=== PATIENT | male | born 1990 | race Caucasian/White ===

== ENCOUNTER 2019-02-06 22:08 | Emergency (ER) | payer OTHER ==
[~2019-02-06] VITALS: Ht 170.2 cm; Wt 88.5 kg
[2019-02-06] MEDS ORDERED: ABILIFY 5 MG TAB5 MG PO (22:20)
[2019-02-06] MEDS ORDERED: IBUPROFEN 800800 MG PO (23:31)
[2019-02-06] MEDS ORDERED: HYDROCODON-ACE1 EAC7 PO (23:31)
[2019-02-07 00:05] VITALS: BP 140/58
== END 2019-02-07 00:05 | disposition home or self-care (01) ==
LOC: M.ERS 22:08
DX: S52.135A Nondisplaced fracture of neck of left radius, initial encounter for closed fracture (principal); F32.9 Major depressive disorder, single episode, unspecified; W01.0XXA Fall on same level from slipping, tripping and stumbling without subsequent striking against object, initial encounter; Y93.89 Activity, other specified; Y92.89 Other specified places as the place of occurrence of the external cause; Y99.8 Other external cause status

== ENCOUNTER 2019-08-10 19:23 | Emergency (ER) | payer OTHER ==
[~2019-08-10] VITALS: Ht 170.2 cm; Wt 87.1 kg
[~2019-08-10 19:23] MED LIST: ABILIFY 5 MG TAB5 MG PO; HYDROCODON-ACE1 EAC7 PO; IBUPROFEN 800800 MG PO
[2019-08-10 19:46] LABS: ABSOLUTE BASOPHILS 0.1 thou/uL (0.0-0.2); ABSOLUTE EOSINOPHILS 0.1 thou/uL (0.0-0.7); ABSOLUTE LYMPHOCYTES 1.7 thou/uL (0.8-5.3); ABSOLUTE MONOCYTES 0.3 thou/uL (0.0-1.2); ABSOLUTE NEUTROPHILS 4.1 thou/uL (1.6-8.1); BASOPHILS 1.3 %; EOSINOPHILS 1.3 %; HEMATOCRIT 43.1 % (42.0-52.0); HEMOGLOBIN 14.8 gm/dL (14.0-18.0); LYMPHOCYTES 26.3 %; MCH 27.5 pg (26.0-34.0); MCHC 34.4 g/dL (28.0-37.0); MCV 79.8 fL (80.0-100.0); MONOCYTES 5.3 %; MPV 9.6 fl. (7.2-11.1); NUCLEATED RBCS 0 /100WBC; PLATELET COUNT* 217 thou/uL (150-400); POLYS 65.8 %; RDW-CV 15.7 % (10.5-14.5); WBC 6.3 thou/uL (4.0-11.0)
[2019-08-10 19:55] LABS: CALCIUM 9.2 mg/dL (8.5-10.1); POTASSIUM 3.7 mmol/L (3.5-5.1)
[2019-08-10 20:00] LABS: ALBUMIN 4.1 g/dL (3.4-5.0); TOTAL BILIRUBIN 0.6 mg/dL (<0.1-1.0); TOTAL PROTEIN 7.9 g/dL (6.4-8.2)
[2019-08-10 20:35] LABS: ACETAMINOPHEN < 2 ug/mL (10-30); ALCOHOL < 10 mg/dL (<10); SALICYLATE < 2.8 mg/dL (2.8-20.0)
[2019-08-10 20:59] LABS: AMP/METHAMP Negative (Negative); BARBITURATES Negative (Negative); BENZODIAZEPINES Negative (Negative); COCAINE Negative (Negative); METHADONE Negative (Negative); OPIATES Negative (Negative); PCP Negative (Negative); THC Negative (Negative)
[2019-08-10 21:07] LABS: URINE BILIRUBIN NEGATIVE (Negative); URINE BLOOD NEGATIVE (Negative); URINE CLARITY CLEAR; URINE COLOR YELLOW; URINE GLUCOSE-RANDOM NEGATIVE (Negative); URINE KETONES NEGATIVE (Negative); URINE LEUKOCYTES-REFLEX NEGATIVE (Negative); URINE NITRITE-REFLEX NEGATIVE (Negative); URINE PROTEIN NEGATIVE (Negative); URINE SPECIFIC GRAVITY >= 1.030 (1.005-1.030); URINE UROBILINOGEN 0.2 E.U./dl (0.2-1.0)
[2019-08-10 23:23] VITALS: BP 122/74
== END 2019-08-10 23:23 | disposition home or self-care (01) ==
LOC: M.ERS 19:23
PROVIDERS: Emergency Medicine
DX: F20.9 Schizophrenia, unspecified (principal); F41.9 Anxiety disorder, unspecified; F31.9 Bipolar disorder, unspecified

== ENCOUNTER 2019-08-18 20:46 | Emergency (ER) | payer OTHER ==
[~2019-08-18] VITALS: Ht 170.2 cm; Wt 87.1 kg
[2019-08-18 22:04] LABS: INFLUENZA A ANTIGEN Negative (Negative); INFLUENZA B ANTIGEN Negative (Negative)
[2019-08-18] MEDS ORDERED: ULTRAM 50MG TAB50 MG PO (22:15)
[2019-08-18] MEDS ORDERED: PROMETHAZINE-C473 ML PO (22:15)
[2019-08-18 22:22] VITALS: BP 139/93
== END 2019-08-18 22:22 | disposition home or self-care (01) ==
LOC: M.ERS 20:46
PROVIDERS: Personal Emergency Response Attendant
DX: J06.9 Acute upper respiratory infection, unspecified (principal); R51 Headache; B34.9 Viral infection, unspecified; F31.9 Bipolar disorder, unspecified; F41.9 Anxiety disorder, unspecified; F20.9 Schizophrenia, unspecified

== ENCOUNTER 2019-11-06 18:54 | Emergency (ER) | payer OTHER ==
[~2019-11-06] VITALS: Ht 170.2 cm; Wt 70.3 kg
[~2019-11-06 18:54] MED LIST changes: +PROMETHAZINE-C473 ML PO; +ULTRAM 50MG TAB50 MG PO
[2019-11-06 19:16] LABS: ABSOLUTE LYMPHOCYTES 0.5 thou/uL (0.8-5.3); ABSOLUTE MONOCYTES 0.5 thou/uL (0.0-1.2); ABSOLUTE NEUTROPHILS 4.6 thou/uL (1.6-8.1); BASOPHILS 0.5 %; EOSINOPHILS 0.4 %; HEMATOCRIT 44.8 % (42.0-52.0); HEMOGLOBIN 15.5 gm/dL (14.0-18.0); LYMPHOCYTES 9.3 %; MCH 27.6 pg (26.0-34.0); MCHC 34.5 g/dL (28.0-37.0); MCV 79.9 fL (80.0-100.0); MONOCYTES 8.1 %; MPV 9.6 fl. (7.2-11.1); NUCLEATED RBCS 0 /100WBC; PLATELET COUNT* 207 thou/uL (150-400); POLYS 81.7 %; RDW-CV 15.8 % (10.5-14.5); WBC 5.7 thou/uL (4.0-11.0)
[2019-11-06 19:23] LABS: CALCIUM 8.4 mg/dL (8.5-10.1); CREATININE 1.2 mg/dL (0.6-1.3); POTASSIUM 3.7 mmol/L (3.5-5.1)
[2019-11-06 19:28] LABS: ALBUMIN 3.7 g/dL (3.4-5.0); TOTAL BILIRUBIN 1.4 mg/dL (<0.1-1.0); TOTAL PROTEIN 7.5 g/dL (6.4-8.2)
[2019-11-06 19:39] LABS: INFLUENZA A ANTIGEN Negative (Negative); INFLUENZA B ANTIGEN Negative (Negative)
[2019-11-06] MEDS ORDERED: ZOFRAN 4 MG ORAL4 MG PO (20:18)
[2019-11-06 20:39] VITALS: BP 132/68
== END 2019-11-06 20:39 | disposition home or self-care (01) ==
LOC: M.ERS 18:54
PROVIDERS: Nurse Practitioner Family
DX: A08.4 Viral intestinal infection, unspecified (principal); R11.2 Nausea with vomiting, unspecified; F31.9 Bipolar disorder, unspecified; F41.9 Anxiety disorder, unspecified; F20.9 Schizophrenia, unspecified

== ENCOUNTER 2020-01-24 14:33 | Emergency (ER) | payer OTHER ==
[~2020-01-24] VITALS: Ht 170.2 cm; Wt 79.4 kg
[~2020-01-24 14:33] MED LIST changes: +ZOFRAN 4 MG ORAL4 MG PO
[2020-01-24 15:56] VITALS: BP 138/76
== END 2020-01-24 15:57 | disposition home or self-care (01) ==
LOC: M.ERS 14:33
DX: S61.012A Laceration without foreign body of left thumb without damage to nail, initial encounter (principal); W26.8XXA Contact with other sharp object(s), not elsewhere classified, initial encounter; Y93.89 Activity, other specified; Y92.89 Other specified places as the place of occurrence of the external cause; Y99.8 Other external cause status

== ENCOUNTER 2020-02-24 18:24 | Emergency (ER) | payer OTHER ==
[~2020-02-24] VITALS: Ht 170.2 cm; Wt 83.9 kg
[2020-02-24 20:10] VITALS: BP 138/79
== END 2020-02-24 20:11 | disposition home or self-care (01) ==
LOC: M.ERS 18:24
DX: S90.32XA Contusion of left foot, initial encounter (principal); W22.8XXA Striking against or struck by other objects, initial encounter; Y93.02 Activity, running; Y92.69 Other specified industrial and construction area as the place of occurrence of the external cause; Y99.9 Unspecified external cause status

== ENCOUNTER 2020-04-24 22:09 | Emergency (ER) | payer OTHER ==
[~2020-04-24] VITALS: Ht 172.7 cm; Wt 83.9 kg
[~2020-04-24 22:09] MED LIST changes: +HYDROCODON-ACE1 EAC8 PO
[2020-04-25 00:26] VITALS: BP 137/89
== END 2020-04-25 00:27 | disposition home or self-care (01) ==
LOC: M.ERS 22:09
DX: S90.811A Abrasion, right foot, initial encounter (principal); S80.811A Abrasion, right lower leg, initial encounter; F31.9 Bipolar disorder, unspecified; F41.9 Anxiety disorder, unspecified; F20.9 Schizophrenia, unspecified; V29.9XXA Motorcycle rider (driver) (passenger) injured in unspecified traffic accident, initial encounter; Y93.89 Activity, other specified; Y92.89 Other specified places as the place of occurrence of the external cause; Y99.8 Other external cause status

== ENCOUNTER 2020-08-06 16:48 | Emergency (ER) | payer OTHER ==
[~2020-08-06] VITALS: Ht 172.7 cm; Wt 87.1 kg
[2020-08-06 19:05] VITALS: BP 145/99
== END 2020-08-06 19:05 | disposition home or self-care (01) ==
LOC: M.ERS 16:48
DX: J06.9 Acute upper respiratory infection, unspecified (principal); Z20.828 Contact with and (suspected) exposure to other viral communicable diseases

== ENCOUNTER → 2020-10-22 | Emergency (ER) | payer OTHER ==
[~2020-10-22] VITALS: Ht 172.7 cm; Wt 74.8 kg
[~2020-10-22] MED LIST changes: +AMOXICILLIN 50500 MG PO; +LIDOCAINE VISC100 ML SWISH&SPIT; +PERIDEX15 ML SWISH&SPIT; +PROTONIX40 M4 PO
[2020-10-22 17:15] VITALS: BP 152/103
== END ==
LOC: M.ERS 16:43
DX: J02.9 Acute pharyngitis, unspecified (principal); F31.9 Bipolar disorder, unspecified; F41.9 Anxiety disorder, unspecified; F20.9 Schizophrenia, unspecified; Z91.048 Other nonmedicinal substance allergy status

== ENCOUNTER 2021-01-11 20:25 | Emergency (ER) | payer OTHER ==
[~2021-01-11] VITALS: Ht 172.7 cm; Wt 83.9 kg
[2021-01-11 21:17] VITALS: BP 137/96
[2021-01-12] MEDS ORDERED: DOXYCYCLINE 10100 MG PO (08:07)
[2021-01-12] MEDS ORDERED: SUPRAX400 M1 PO (08:07)
== END 2021-01-11 21:17 | disposition left against medical advice (07) ==
LOC: M.ERS 20:25
DX: Z53.21 Procedure and treatment not carried out due to patient leaving prior to being seen by health care provider (principal)

== ENCOUNTER 2021-01-12 06:55 | Emergency (ER) | payer OTHER ==
[~2021-01-12] VITALS: Ht 172.7 cm; Wt 83.9 kg
[2021-01-12] MEDS ORDERED: DOXYCYCLINE 10100 MG PO (08:07)
[2021-01-12] MEDS ORDERED: SUPRAX400 M1 PO (08:07)
[2021-01-12 08:24] VITALS: BP 128/80
== END 2021-01-12 08:26 | disposition home or self-care (01) ==
LOC: M.ERS 06:55
DX: Z11.3 Encounter for screening for infections with a predominantly sexual mode of transmission (principal); Z20.2 Contact with and (suspected) exposure to infections with a predominantly sexual mode of transmission; Z79.899 Other long term (current) drug therapy

== ENCOUNTER 2021-02-05 14:59 | Emergency (ER) | payer OTHER ==
[~2021-02-05] VITALS: Ht 175.3 cm; Wt 88.5 kg
[~2021-02-05 14:59] MED LIST changes: +DOXYCYCLINE 10100 MG PO; +SUPRAX400 M1 PO
--- NOTE | 2021-02-05 15:57 | EKG ---
[place] [address] ELECTROCARDIOGRAM REPORT Name: LAWANDA PANDYA Room: [facility]#: [id number] Admission: 02/05/21 Attend Phys: Discharge: Date of : 89 Date of Service: 02/05/21 1504 Report #: [id number] THIS REPORT FOR: //name// [facility] ED Test Date: 2021-02-05 Test Time: 15:04:10 Pat Name: LAWANDA PANDYA Department: Room: Gender: Client Experience Specialist: : 1990 Requested By: Andrea Daniel Order Number: [id number] MD: Josh Blum Measurements Intervals [place] Rate: 84 P: 70 TX: 129 QRS: 68 QRSD: 86 T: 45 QT: 348 QTc: 412 Interpretive Statements Sinus rhythm No previous ECG available for comparison Electronically Signed On 02-05-2021 15:57:21 CDT by Josh Blum [email or web address] <ELECTRONICALLY SIGNED> By: Josh Blum MD, [facility] 02/05/21 1557 1504 1504 Josh Blum MD, FACC /EPI
[2021-02-05 16:36] VITALS: BP 129/81
== END 2021-02-05 16:38 | disposition home or self-care (01) ==
LOC: M.ERS 14:59
DX: R07.89 Other chest pain (principal)

== ENCOUNTER 2021-10-11 09:09 | Emergency (ER) | payer OTHER ==
[~2021-10-11] VITALS: Ht 170.2 cm; Wt 56.7 kg
[2021-10-11 09:23] VITALS: BP 136/89
== END 2021-10-11 10:20 | disposition home or self-care (01) ==
LOC: M.ERS 09:09
DX: R51.9 Headache, unspecified (principal); F32.9 Major depressive disorder, single episode, unspecified; F41.9 Anxiety disorder, unspecified; F20.9 Schizophrenia, unspecified